=== PATIENT | female | born 1935 | race Caucasian/White ===

== ENCOUNTER 2017-05-20 12:51 | Emergency (ER) | payer MEDICARE, BC, OTHER ==
[~2017-05-20] VITALS: Ht 162.6 cm; Wt 75.1 kg
[2017-05-20] MEDS ORDERED: LOSARTAN POTASS1 TA2 PO (12:59)
[2017-05-20 19:50] VITALS: BP 135/58
== END 2017-05-20 19:50 | disposition other institution (70) ==
LOC: ED 12:51
DX: G45.9 Transient cerebral ischemic attack, unspecified (principal); I10 Essential (primary) hypertension; R53.1 Weakness; W19.XXXA Unspecified fall, initial encounter
CPT/HCPCS: A4353; J7030

== ENCOUNTER 2017-05-24 14:58 | Inpatient (IN) | payer MEDICARE, BC, OTHER ==
[~2017-05-24] VITALS: Ht 162.6 cm; Wt 74.9 kg
[~2017-05-24 14:58] MED LIST: LOSARTAN POTASS1 TA2 PO
[2017-05-24] MEDS ORDERED: XARELTO15 MG PO (15:09)
[2017-05-24 22:00] VITALS: BP 127/62
[2017-05-24 22:20] VITALS: BP 127/62
[2017-05-24] MEDS ORDERED: TOPROL XL 50MG50 MG PO (22:45)
[2017-05-25 06:29] VITALS: BP 139/57
[2017-05-25 06:49] VITALS: BP 139/57
[2017-05-25 19:41] VITALS: BP 125/74
[2017-05-26 06:28] VITALS: BP 130/64
[2017-05-26 18:19] VITALS: BP 119/63
[2017-05-27 06:18] VITALS: BP 114/55
[2017-05-27 18:17] VITALS: BP 127/66
[2017-05-28 06:18] VITALS: BP 118/68
[2017-05-28 18:17] VITALS: BP 124/51
[2017-05-29 06:26] VITALS: BP 129/50
[2017-05-29 17:56] VITALS: BP 154/69
[2017-05-30 06:27] VITALS: BP 107/50
[2017-05-30 18:22] VITALS: BP 149/55
[2017-05-31 06:20] VITALS: BP 119/51
[2017-05-31 18:57] VITALS: BP 128/60
[2017-06-01 06:23] VITALS: BP 117/52
[2017-06-01 17:54] VITALS: BP 139/61
[2017-06-02 06:27] VITALS: BP 116/51
[2017-06-02 18:32] VITALS: BP 136/70
[2017-06-03 06:20] VITALS: BP 136/60
[2017-06-03 18:30] VITALS: BP 126/61
[2017-06-04 06:24] VITALS: BP 113/61
[2017-06-04 18:07] VITALS: BP 122/55
[2017-06-05 06:00] VITALS: BP 127/61
[2017-06-05 18:21] VITALS: BP 137/60
[2017-06-06 06:12] VITALS: BP 147/65
[2017-06-06 17:47] VITALS: BP 138/81
[2017-06-07 06:41] VITALS: BP 130/61
[2017-06-07 18:12] VITALS: BP 122/81
[2017-06-08 06:33] VITALS: BP 136/60
[2017-06-08 18:30] VITALS: BP 113/56
[2017-06-09 06:27] VITALS: BP 131/66
[2017-06-09 17:50] VITALS: BP 141/76
[2017-06-10 06:26] VITALS: BP 143/72
[2017-06-10 17:51] VITALS: BP 152/93
[2017-06-11 06:19] VITALS: BP 152/60
[2017-06-11 18:30] VITALS: BP 138/75
[2017-06-12 06:21] VITALS: BP 127/58
[2017-06-12 18:39] VITALS: BP 144/68
[2017-06-13 06:36] VITALS: BP 138/61
[2017-06-13 18:05] VITALS: BP 159/72
[2017-06-14 06:20] VITALS: BP 141/68
[2017-06-14] MEDS ORDERED: Aquaphor Oint TP (08:22)
[2017-06-14] MEDS ORDERED: COZAAR 50MG50 MG/TAB PO (08:26)
[2017-06-14] MEDS ORDERED: XARELTO15 MG PO (08:26)
[2017-06-14] MEDS ORDERED: COZAAR100 MG PO (09:57)
== END 2017-06-14 11:15 | disposition home or self-care (01) | DRG 57 ==
LOC: MED/SURG 14:58
PROVIDERS: ADMIT Nurse Practitioner Family
DX: I69.320 Aphasia following cerebral infarction (principal); I48.91 Unspecified atrial fibrillation; I10 Essential (primary) hypertension; R06.00 Dyspnea, unspecified; R53.81 Other malaise; I69.319 Unspecified symptoms and signs involving cognitive functions following cerebral infarction; F01.50 Vascular dementia, unspecified severity, without behavioral disturbance, psychotic disturbance, mood disturbance, and anxiety; B35.3 Tinea pedis
CPT/HCPCS: J7030

== ENCOUNTER 2017-06-20 11:00 | Outpatient (RCR) | payer MEDICARE, BC, OTHER ==
[~2017-06-20 11:00] MED LIST changes: +Aquaphor Oint TP; +COZAAR 50MG50 MG/TAB PO; +COZAAR100 MG PO; +TOPROL XL 50MG50 MG PO; +XARELTO15 MG PO
== END 2017-06-20 11:30 | disposition home or self-care (01) ==
LOC: SPEECH 11:00
DX: I69.320 Aphasia following cerebral infarction (principal); F80.1 Expressive language disorder; I69.319 Unspecified symptoms and signs involving cognitive functions following cerebral infarction; F01.50 Vascular dementia, unspecified severity, without behavioral disturbance, psychotic disturbance, mood disturbance, and anxiety

== ENCOUNTER 2018-01-03 00:14 | Emergency (ER) | payer MEDICARE, BC ==
[~2018-01-03] VITALS: Ht 160 cm; Wt 56.4 kg
[2018-01-03] MEDS ORDERED: COREG 3.123.125 MG/T PO (00:57)
[2018-01-03 01:54] LABS: HEMATOCRIT 39.3 % (37.0-47.0); HEMOGLOBIN 12.8 g/dL (12.5-16.0); MEAN CELL VOLUME 93 fl (78-100); MEAN CORPUSCULAR HEMOGLOBIN 30 pg (27-31); MEAN CORPUSCULAR HGB CONC 33 g/dL (33-37); MEAN PLATELET VOLUME 9.7 fl (7.4-10.4); PLATELET COUNT 267 K/mm3 (130-400); RED BLOOD COUNT 4.24 M/mm3 (4.10-5.30); RED CELL DISTRIBUTION WIDTH 12.9 % (11.5-14.5); WHITE BLOOD COUNT 9.3 K/mm3 (4.8-10.8)
[2018-01-03 02:00] LABS: PROTHROMBIN TIME 15.3 SECONDS (9.0-12.0)
[2018-01-03 02:02] LABS: URINE APPEARANCE CLEAR; URINE BILIRUBIN NEGATIVE (NEGATIVE); URINE BLOOD TRACE (NEGATIVE); URINE COLOR YELLOW; URINE GLUCOSE NEGATIVE (NEGATIVE); URINE KETONE NEGATIVE (NEGATIVE); URINE LEUKOCYTE ESTERASE NEGATIVE (NEGATIVE); URINE NITRATE NEGATIVE (NEGATIVE); URINE PROTEIN(semi-quant) NEGATIVE (NEGATIVE); URINE UROBILINOGEN NORMAL (NORMAL); URINE WBC 0-1 /hpf (0-3)
[2018-01-03 02:02] LABS: LYMPHOCYTE 5 % (20-51); MONOCYTE 5 % (3-10); NEUTROPHILS 90 % (42-75)
[2018-01-03 02:03] LABS: ALBUMIN 3.5 g/dL (3.5-5.0); BUN/CREATININE RATIO 26.8 (6.0-26.0); CALCIUM 10.8 mg/dL (8.4-10.2); POTASSIUM 4.1 mmol/L (3.6-5.0); TOTAL BILIRUBIN 0.8 mg/dL (0.2-1.3); TOTAL PROTEIN 7.1 g/dL (6.3-8.2)
[2018-01-03 02:28] VITALS: BP 169/71
== END 2018-01-03 02:28 | disposition short-term general hospital (02) ==
LOC: ED 00:14
PROVIDERS: Nurse Practitioner Primary Care
DX: S72.451A Displaced supracondylar fracture without intracondylar extension of lower end of right femur, initial encounter for closed fracture (principal); W18.39XA Other fall on same level, initial encounter; Y92.003 Bedroom of unspecified non-institutional (private) residence as the place of occurrence of the external cause; Z86.73 Personal history of transient ischemic attack (TIA), and cerebral infarction without residual deficits; I50.9 Heart failure, unspecified
CPT/HCPCS: J3010

== ENCOUNTER 2018-01-12 13:31 | Inpatient (IN) | payer MEDICARE, BC ==
[~2018-01-12] VITALS: Ht 157.5 cm; Wt 70.2 kg
[~2018-01-12 13:31] MED LIST changes: +COREG 3.123.125 MG/T PO
[2018-01-12 13:53] VITALS: BP 140/58
[2018-01-12 14:35] VITALS: BP 140/58
[2018-01-12] MEDS ORDERED: LIPITOR 10M10 MG/TAB PO (17:41)
[2018-01-12] MEDS ORDERED: TYLENOL EXTRA500 M2 PO (17:41)
[2018-01-12] MEDS ORDERED: SENOKOT8.6 MG PO (17:46)
[2018-01-12] MEDS ORDERED: VOLTAREN GEL1% TP (18:03)
[2018-01-12] MEDS ORDERED: LIDODERM1 EACH TP (18:05)
[2018-01-12 18:22] VITALS: BP 125/79
[2018-01-13 06:12] LABS: URINE COLOR YELLOW
[2018-01-13 06:13] LABS: URINE APPEARANCE CLEAR; URINE BILIRUBIN NEGATIVE (NEGATIVE); URINE BLOOD TRACE (NEGATIVE); URINE GLUCOSE NEGATIVE (NEGATIVE); URINE KETONE NEGATIVE (NEGATIVE); URINE LEUKOCYTE ESTERASE NEGATIVE (NEGATIVE); URINE NITRATE NEGATIVE (NEGATIVE); URINE PROTEIN(semi-quant) TRACE mg/dL (NEGATIVE); URINE UROBILINOGEN NORMAL (NORMAL)
[2018-01-13 06:51] VITALS: BP 130/72
[2018-01-13 07:10] LABS: ALBUMIN 2.6 g/dL (3.5-5.0); BUN/CREATININE RATIO 28.4 (6.0-26.0); CALCIUM 9.9 mg/dL (8.4-10.2); POTASSIUM 3.7 mmol/L (3.6-5.0); TOTAL BILIRUBIN 0.5 mg/dL (0.2-1.3); TOTAL PROTEIN 5.6 g/dL (6.3-8.2)
[2018-01-13 09:29] LABS: HEMATOCRIT 27.4 % (37.0-47.0); HEMOGLOBIN 8.7 g/dL (12.5-16.0); MEAN PLATELET VOLUME 9.3 fl (7.4-10.4); RED BLOOD COUNT 2.87 M/mm3 (4.10-5.30); RED CELL DISTRIBUTION WIDTH 14.1 % (11.5-14.5); WHITE BLOOD COUNT 7.2 K/mm3 (4.8-10.8)
[2018-01-13 18:07] VITALS: BP 143/73
[2018-01-14 06:44] VITALS: BP 113/56
[2018-01-14 18:58] VITALS: BP 109/4
[2018-01-15 06:22] VITALS: BP 124/62
[2018-01-15 18:25] VITALS: BP 100/66
[2018-01-16 06:05] VITALS: BP 121/51
[2018-01-16 09:24] LABS: HEMATOCRIT 30.3 % (37.0-47.0); HEMOGLOBIN 9.4 g/dL (12.5-16.0); MEAN PLATELET VOLUME 8.8 fl (7.4-10.4); RED BLOOD COUNT 3.11 M/mm3 (4.10-5.30); RED CELL DISTRIBUTION WIDTH 14.6 % (11.5-14.5); WHITE BLOOD COUNT 8.1 K/mm3 (4.8-10.8)
[2018-01-16 09:34] LABS: BUN/CREATININE RATIO 29.2 (6.0-26.0)
[2018-01-16 18:23] VITALS: BP 109/61
[2018-01-17 06:22] VITALS: BP 119/64
[2018-01-17 18:07] VITALS: BP 115/68
[2018-01-18 06:25] VITALS: BP 134/64
[2018-01-18 18:23] VITALS: BP 130/78
[2018-01-19 06:40] VITALS: BP 130/67
[2018-01-19 07:33] LABS: HEMATOCRIT 29.9 % (37.0-47.0); HEMOGLOBIN 9.2 g/dL (12.5-16.0); MEAN PLATELET VOLUME 8.7 fl (7.4-10.4); RED BLOOD COUNT 3.07 M/mm3 (4.10-5.30); RED CELL DISTRIBUTION WIDTH 14.8 % (11.5-14.5); WHITE BLOOD COUNT 5.2 K/mm3 (4.8-10.8)
[2018-01-19 12:39] LABS: ALBUMIN 2.7 g/dL (3.5-5.0); BUN/CREATININE RATIO 14.5 (6.0-26.0); CALCIUM 10.1 mg/dL (8.4-10.2); POTASSIUM 4.2 mmol/L (3.6-5.0); TOTAL BILIRUBIN 0.5 mg/dL (0.2-1.3)
[2018-01-19 18:41] VITALS: BP 115/67
[2018-01-20 06:13] VITALS: BP 129/62
[2018-01-20 18:19] VITALS: BP 144/70
[2018-01-21 06:49] VITALS: BP 144/83
[2018-01-21 18:42] VITALS: BP 155/71
[2018-01-22 06:05] VITALS: BP 149/84
[2018-01-22 18:22] VITALS: BP 121/62
[2018-01-23 06:30] VITALS: BP 132/69
[2018-01-23 18:10] VITALS: BP 134/74
[2018-01-24 06:41] VITALS: BP 148/79
[2018-01-24 18:46] VITALS: BP 131/63
[2018-01-25 06:37] VITALS: BP 146/84
[2018-01-25 18:29] VITALS: BP 147/70
[2018-01-26 06:18] LABS: HEMATOCRIT 30.6 % (37.0-47.0); HEMOGLOBIN 9.5 g/dL (12.5-16.0); MEAN PLATELET VOLUME 8.7 fl (7.4-10.4); RED BLOOD COUNT 3.2 M/mm3 (4.10-5.30); RED CELL DISTRIBUTION WIDTH 14.9 % (11.5-14.5); WHITE BLOOD COUNT 6.8 K/mm3 (4.8-10.8)
[2018-01-26 06:31] LABS: BUN/CREATININE RATIO 19.5 (6.0-26.0); POTASSIUM 4.1 mmol/L (3.6-5.0)
[2018-01-26 06:35] VITALS: BP 119/59
[2018-01-26 18:00] VITALS: BP 145/87
[2018-01-27 06:23] VITALS: BP 119/61
[2018-01-27 19:00] VITALS: BP 144/81
[2018-01-28 06:38] VITALS: BP 135/62
[2018-01-28 12:24] LABS: URINE APPEARANCE CLOUDY; URINE BILIRUBIN NEGATIVE (NEGATIVE); URINE BLOOD 50 ery/uL (NEGATIVE); URINE COLOR YELLOW; URINE GLUCOSE NEGATIVE (NEGATIVE); URINE KETONE NEGATIVE (NEGATIVE); URINE NITRATE POSITIVE (NEGATIVE); URINE PROTEIN(semi-quant) TRACE mg/dL (NEGATIVE); URINE UROBILINOGEN NORMAL (NORMAL)
[2018-01-28 12:25] LABS: URINE LEUKOCYTE ESTERASE 2+ (NEGATIVE); URINE WBC >50 /hpf (0-3)
[2018-01-28 18:55] VITALS: BP 127/81
[2018-01-29 06:35] VITALS: BP 137/66
[2018-01-29 19:05] VITALS: BP 150/63
[2018-01-30 07:11] VITALS: BP 137/53
[2018-01-30 18:11] VITALS: BP 158/72
[2018-01-31 05:59] LABS: HEMATOCRIT 34.2 % (37.0-47.0); HEMOGLOBIN 10.8 g/dL (12.5-16.0); MEAN PLATELET VOLUME 9.2 fl (7.4-10.4); RED BLOOD COUNT 3.59 M/mm3 (4.10-5.30); RED CELL DISTRIBUTION WIDTH 14.9 % (11.5-14.5); WHITE BLOOD COUNT 5.7 K/mm3 (4.8-10.8)
[2018-01-31 06:15] LABS: BUN/CREATININE RATIO 24.4 (6.0-26.0); CALCIUM 9.9 mg/dL (8.4-10.2); POTASSIUM 4.3 mmol/L (3.6-5.0)
[2018-01-31 06:26] VITALS: BP 150/52
[2018-01-31 18:37] VITALS: BP 132/86
[2018-02-01 06:30] VITALS: BP 154/67
[2018-02-01 18:11] VITALS: BP 167/78
[2018-02-02 06:31] VITALS: BP 148/78
[2018-02-02 18:36] VITALS: BP 138/76
[2018-02-03 06:07] LABS: HEMATOCRIT 36.8 % (37.0-47.0); HEMOGLOBIN 11.5 g/dL (12.5-16.0); MEAN PLATELET VOLUME 9.2 fl (7.4-10.4); RED BLOOD COUNT 3.88 M/mm3 (4.10-5.30); RED CELL DISTRIBUTION WIDTH 14.8 % (11.5-14.5); WHITE BLOOD COUNT 5.9 K/mm3 (4.8-10.8)
[2018-02-03 06:40] VITALS: BP 161/84
[2018-02-03 11:18] LABS: PH-URINE 5.5 (5.0 - 8.0); URINE APPEARANCE CLEAR; URINE BILIRUBIN NEGATIVE (NEGATIVE); URINE BLOOD NEGATIVE (NEGATIVE); URINE COLOR YELLOW; URINE GLUCOSE NEGATIVE (NEGATIVE); URINE KETONE NEGATIVE (NEGATIVE); URINE NITRATE NEGATIVE (NEGATIVE); URINE PROTEIN(semi-quant) NEGATIVE (NEGATIVE); URINE UROBILINOGEN NORMAL (NORMAL)
[2018-02-03 11:19] LABS: URINE LEUKOCYTE ESTERASE NEGATIVE (NEGATIVE); URINE WBC 0-1 /hpf (0-3)
[2018-02-03 18:32] VITALS: BP 153/84
[2018-02-04 06:30] VITALS: BP 120/57
[2018-02-04 18:40] VITALS: BP 154/71
[2018-02-05 06:29] VITALS: BP 146/70
[2018-02-05 18:43] VITALS: BP 125/71
[2018-02-06 06:20] VITALS: BP 115/64
[2018-02-06 20:00] VITALS: BP 143/81
[2018-02-07 06:36] VITALS: BP 137/71
[2018-02-07 18:48] VITALS: BP 151/71
[2018-02-08 06:25] VITALS: BP 117/56
[2018-02-08 18:20] VITALS: BP 139/59
[2018-02-09 07:06] VITALS: BP 130/70
[2018-02-09 17:38] VITALS: BP 158/64
[2018-02-10 06:25] VITALS: BP 124/72
[2018-02-10 08:54] LABS: HEMATOCRIT 39.5 % (37.0-47.0); HEMOGLOBIN 12.1 g/dL (12.5-16.0); MEAN PLATELET VOLUME 9.3 fl (7.4-10.4); RED BLOOD COUNT 4.14 M/mm3 (4.10-5.30); RED CELL DISTRIBUTION WIDTH 14.9 % (11.5-14.5); WHITE BLOOD COUNT 8.1 K/mm3 (4.8-10.8)
[2018-02-10 09:06] LABS: ALBUMIN 3.3 g/dL (3.5-5.0); BUN/CREATININE RATIO 21.9 (6.0-26.0); CALCIUM 10.4 mg/dL (8.4-10.2); TOTAL BILIRUBIN 0.7 mg/dL (0.2-1.3)
[2018-02-10 18:41] VITALS: BP 117/57
[2018-02-11 06:33] VITALS: BP 103/60
[2018-02-11 19:11] VITALS: BP 136/62
[2018-02-12 06:03] VITALS: BP 128/78
[2018-02-12 18:24] VITALS: BP 149/83
[2018-02-13 06:04] VITALS: BP 146/84
[2018-02-13 08:57] VITALS: BP 164/81
[2018-02-13 18:27] VITALS: BP 159/82
[2018-02-14 06:25] VITALS: BP 144/66
[2018-02-14 18:29] VITALS: BP 146/70
[2018-02-15 06:31] VITALS: BP 147/80
[2018-02-15 19:24] VITALS: BP 136/76
[2018-02-16 06:35] VITALS: BP 157/85
[2018-02-16 17:58] VITALS: BP 158/86
[2018-02-17 06:42] VITALS: BP 132/69
[2018-02-17] MEDS ORDERED: TRAMADOL 50 MG TAB PO (07:38)
[2018-02-17] MEDS ORDERED: PEG 335017 GM/Dose PO (07:39)
[2018-02-17] MEDS ORDERED: SENNA-TIME S 501 TAB PO (07:39)
[2018-02-17] MEDS ORDERED: DESENEX2% TP (07:42)
[2018-02-17 09:47] VITALS: BP 132/69
[2018-02-17 11:00] VITALS: BP 119/62
== END 2018-02-17 11:42 | DRG 560 ==
LOC: MED/SURG 13:31
PROVIDERS: ADMIT Family Medicine
DX: S72.401D Unspecified fracture of lower end of right femur, subsequent encounter for closed fracture with routine healing (principal); N39.0 Urinary tract infection, site not specified; B37.49 Other urogenital candidiasis; F05 Delirium due to known physiological condition; W18.30XD Fall on same level, unspecified, subsequent encounter; I48.91 Unspecified atrial fibrillation; Z86.73 Personal history of transient ischemic attack (TIA), and cerebral infarction without residual deficits; Z79.01 Long term (current) use of anticoagulants; I10 Essential (primary) hypertension; F03.90 Unspecified dementia, unspecified severity, without behavioral disturbance, psychotic disturbance, mood disturbance, and anxiety; D50.0 Iron deficiency anemia secondary to blood loss (chronic)
CPT/HCPCS: A4354; A6531

== ENCOUNTER → 2018-03-28 | Outpatient (CLI) | payer MEDICARE, BC ==
[~2018-03-28] MED LIST changes: +DESENEX2% TP; +LIDODERM1 EACH TP; +LIPITOR 10M10 MG/TAB PO; +PEG 335017 GM/Dose PO; +SENNA-TIME S 501 TAB PO; +SENOKOT8.6 MG PO; +TRAMADOL 50 MG TAB PO; +TYLENOL EXTRA500 M2 PO; +VOLTAREN GEL1% TP
[2018-03-28 13:13] LABS: URINE APPEARANCE CLEAR; URINE BILIRUBIN NEGATIVE (NEGATIVE); URINE BLOOD NEGATIVE (NEGATIVE); URINE COLOR YELLOW; URINE GLUCOSE NEGATIVE (NEGATIVE); URINE KETONE NEGATIVE (NEGATIVE); URINE LEUKOCYTE ESTERASE NEGATIVE (NEGATIVE); URINE MUCUS PRESENT (NOT PRESENT); URINE NITRATE NEGATIVE (NEGATIVE); URINE PROTEIN(semi-quant) NEGATIVE (NEGATIVE); URINE UROBILINOGEN NORMAL (NORMAL); URINE WBC 0-1 /hpf (0-3)
== END ==
LOC: LAB 06:00
PROVIDERS: Family Medicine
DX: R41.82 Altered mental status, unspecified (principal)

== ENCOUNTER 2018-08-16 13:29 | Inpatient (IN) | payer MEDICARE, BC ==
[~2018-08-16] VITALS: Ht 162.6 cm; Wt 65.9 kg
--- NOTE | 2018-08-16 17:25 | NUR ---
Patient transferred from [facility] for Swing bed. Arrives by POV with family. Transferred to wheelchair with staff assist x4 and slide board. Patient unable to assist, and has difficulty following commands. Staff x4 assisted patient into bed. Patient is alert and partially oriented. Slow to respond when asked questions. Laughs inappropriately and states "I don't remember" to most questions. Denies pain when asked, but yells out in pain and has facial grimace when turning patient. Dyspnea noted with minimal exertion. Respirations are shallow and 28-32 breaths per min. Lungs are CTA. Incontinent of bowel. Hilary care provided. Patient arrived with indwelling urinary catheter. Garza d/c. New garza catheter inserted and UA obtained. Urine has a strong foul odor, is dark yellow, and cloudy. Groin is red and excoriated. +3 edema and weeping noted to bilateral lower extremities. Patient's socks were completely saturated with unknown fluid on arrival. Patient has multiple unstagable pressure ulcers. Wound measurements are as follows; large unstagable ulcer to sacrum/buttock. Large area of eschar on both sides of the sacrum extending down on to the buttock tissue measures 8.3cm x 6.4cm. Skin surrounding area of eschar is reddened and warm to touch with intermittent bleeding. Total wound to sacrum including eschar and surrounding reddened tissue measures 11.9cm x 9.4cm. Multiple mepilex dressings applied to cover entire wound per orders. Right ankle is reddened and blanchable with small abrasion noted. Wound to left great toe measures 0.5cm x 0.3cm, left open to air. Wound to left medial knee measures 4.6cm x 5cm, weeping, mepilex applied per orders. Three unstagable wounds noted to area of right hip. Unstagable ulcer to area of right greater trochanter measures 5.5cm x 7cm, and is approximately 70% eschar. Mepilex applied per orders. Distally is 2nd unstagable wound measuring 5.4cm x 7cm, approximately 20% eschar. Mepilex applied per orders. 3rd unstagable ulcer to area of right hip measures 1cm x 1.4cm. Mepilex applied per orders. Bilateral elbows are reddened and blanchable. Both elbows have small abrasions. Bruising noted to bilateral forearms. Patient calls out in pain with wound care and repositioning. Patient oriented to room, call light, bed controls, and fall precautions. Patient verbalizes understanding and denies questions. Refuses supper, states that she is not hungry. Denies needs at this time. Fall precautions in place.
[2018-08-16 18:42] VITALS: BP 133/78
[2018-08-16 19:13] LABS: URINE APPEARANCE CLOUDY; URINE BILIRUBIN NEGATIVE (NEGATIVE); URINE BLOOD 250 ery/uL (NEGATIVE); URINE COLOR YELLOW; URINE GLUCOSE NEGATIVE (NEGATIVE); URINE KETONE NEGATIVE (NEGATIVE); URINE LEUKOCYTE ESTERASE 2+ (NEGATIVE); URINE NITRATE NEGATIVE (NEGATIVE); URINE PROTEIN(semi-quant) 2+ mg/dL (NEGATIVE); URINE UROBILINOGEN NORMAL (NORMAL)
[2018-08-16 19:14] LABS: URINE MUCUS PRESENT (NOT PRESENT); URINE WBC 31-50 /hpf (0-3)
[2018-08-16 19:20] VITALS: BP 133/78
--- NOTE | 2018-08-16 19:45 | NUR ---
Bedside shift report received from Velma Rodriguez RN. Pt resting in bed awake. Pt orient to self. Unable to state what town she is in or the facility. Bed alarm set and call light with in reach of pt.
--- NOTE | 2018-08-16 20:45 | NUR ---
Continues to rest in bed on left side. Bed alarm set and call light with in reach of pt. Nystatin cream applied to wenceslao area. No redness noted under breast or under abd apon. Nguyen catheter to dependant drainage. Urine color dark yellow. Pt given sipps of water. No difficulty noted with swallowing. Pt is a/o to self unable to state what facility she if in or town. Denies having any pain. Dressings to coccyx CDI. Pt does moan out with turned or moved. Knee high VIRI hose on.
--- NOTE | 2018-08-16 20:53 | NUR ---
Offered evening snack, pt declined.
--- NOTE | 2018-08-17 00:18 | NUR ---
2345 Pt incontinent of stool. Size small soft light brown. Dressing on coccyx removed. Skin cleaned. New mepilex dressings applied to coccyx. Pt moaned out with repositioning and cleaning of coccyx. Given sipps of water.
[2018-08-17 05:47] VITALS: BP 118/75
[2018-08-17 06:46] LABS: HEMATOCRIT 28.4 % (37.0-47.0); MEAN CELL VOLUME 84 fl (78-100); MEAN CORPUSCULAR HEMOGLOBIN 27 pg (27-31); MEAN CORPUSCULAR HGB CONC 32 g/dL (33-37); MEAN PLATELET VOLUME 11.2 fl (7.4-10.4); PLATELET COUNT 145 K/mm3 (130-400); RED BLOOD COUNT 3.39 M/mm3 (4.10-5.30); WHITE BLOOD COUNT 8.9 K/mm3 (4.8-10.8)
[2018-08-17 06:51] LABS: RED CELL DISTRIBUTION WIDTH 18.7 % (11.5-14.5)
[2018-08-17 07:18] LABS: BAND 1 % (0-10); LYMPHOCYTE 3 % (20-51); MONOCYTE 1 % (3-10); NEUTROPHILS 93 % (42-75)
[2018-08-17 07:19] LABS: OVALOCYTES 1+
[2018-08-17 07:28] LABS: ALBUMIN 2.1 g/dL (3.5-5.0); CALCIUM 9.4 mg/dL (8.4-10.2); POTASSIUM 3.9 mmol/L (3.6-5.0); TOTAL BILIRUBIN 0.9 mg/dL (0.2-1.3); TOTAL PROTEIN 4.8 g/dL (6.3-8.2)
--- NOTE | 2018-08-17 10:00 | NUR ---
Pt lying in bed on R side. Has had multiple loose stools this AM. At this time, dressing to buttocks ulcer is changed. Necrotic ulcerated area to sacrum, sacral split and tissue directly surrounding. Remaining tissue surrounding ulcer is pink and peeling. Pt has to be turned to be cleansed and redressed. Pt moans out in pain. Apply mepilex foam x 4 and ABD to buttocks wounds, apply desenex powder to groin folds. Indwelling garza catheter intact with yellow urine to dependant drainage. BLE cool to touch with 3+ pitting edema. Pt yells out in pain when VIRI hose are applied, they are currently off. Pt does not tolerate SCD's. Contact Dr. Delgado to notify of loose stools, increased pain and intolerance of VIRI hose. Will await add'l orders.
[2018-08-17 18:36] VITALS: BP 93/52
--- NOTE | 2018-08-17 19:30 | NUR ---
Report received from Melanie PERDOMO. Patient awakens with staff in room. A/O x1 self only. Denies pain with no movement. Has pain with movement and with incontinent cares. Incontinent of stool. Old dressings removed and reapplied after cleansing of buttocks. Nguyen patent to DD with timmy urine. Hilary- area reddened. Nystatin applied. Bilateral legs edematous. Wrapped in tamia wraps x 30 min. Repositoned Q 2 hours. Bed alarm on. Call light in reach.
--- NOTE | 2018-08-18 05:12 | NUR ---
Rests quietly between turns. Takes oxgyen off frequently. SAO2 93% on RA. 100% on 2L/NC.
[2018-08-18 06:27] VITALS: BP 121/68
--- NOTE | 2018-08-18 07:08 | NUR ---
Report to Melanie PERDOMO.
--- NOTE | 2018-08-18 08:30 | NUR ---
At bedside with Dr. Delgado. While discussing pt care planning with pt, she states "I will need more time to think about it" when asked how she wanted to proceed with care. Pt denies pain when lying still and reports pain is tolerable with movement when repositioning. Change dressing to L medial knee. Note 6cm abrasion with purulent drainage. Cover with mepilex. Note dressing to buttock wounds to be draining purulent drainage. Dressings changed at this time and measurements taken as follows: R hip total 6cm x 6cm, necrtotic area 6cm x 4cm, R buttock 19cm x 6.5cm, L buttock 13.5cm x 7cm. The wound bed for buttock measurements is completely necrotic. Applied mepilex foam to buttock wounds then repositioned pt to L side with pillows behind pt and between legs, wrapped BLE with tamia wraps and applied heel protectors. Bed low and locked, call light in place.
--- NOTE | 2018-08-18 16:41 | NUR ---
Placed damp to dry guaze 4x4's, medicated with Dakin's .25% solution, to buttock wounds and covered with ABD.
[2018-08-18 18:47] VITALS: BP 103/84
--- NOTE | 2018-08-18 19:20 | NUR ---
Bedside shift report received from Melanie Mcconnell RN. Pt resting in bed, awake and a/o to self. Denies having any needs or concerns at this time. Denies having any pain at this time. Vendor from [employer] to set up [employer] bed.
--- NOTE | 2018-08-18 20:00 | NUR ---
Repositioning pt in bed, pt incontinent of stool. Dressing on Coccyx removed. Pt cleaned and wenceslao care given. Dakin's solution used for wet (damp) to dry dressing change. Pt c/o of pain during dressing change. Denied having pain after dressign change.
--- NOTE | 2018-08-18 22:30 | NUR ---
2229 Bed alarm sounding, pt in bed awake and a/o to self. Attempted several times to rest bed, bed alarm continued to alarm. [employer] Richards call [employer] customer service. Customer service on phone with [employer] PETERSEN and assistances over the phone given. [address] lift and bed reset. Pt repositioned in bed, bed alarm set. Given sipps of water. No difficutly noted with swallowing.
--- NOTE | 2018-08-19 07:00 | NUR ---
Bedside shift report given to Wanda Varela RN
[2018-08-19 07:15] VITALS: BP 112/72
--- NOTE | 2018-08-19 08:03 | NUR ---
REPORT RECEIVED FROM LEANNE JONES. PATIENT RESTING BED WITH LIGHTS OFF BUT SHE IS AWAKE AND SAYS HI TO ME. SHE REPORTS NO PAIN AT THIS TIME AND SAYS THE BED IS COMFORTABLE AND SHE SLEPT WELL. PATIENT DIDN'T HAVE QUESTIONS AT THIS TIME.
--- NOTE | 2018-08-19 10:58 | NUR ---
PATIENT DRESSINGS CHANGED, TOLERATED WELL WITH A FEW CRIES OF PAIN WHILE CLEANING AREA WITH SODIUM HYPOCHLORITE. DAMP TO DRY DRESSING APPLIED TO AREA. PATIENT TOLERATED BEING ROLLED FROM SIDE TO SIDE. 3 WOMEN HAVE ARRIVED AND ARE IN THE ROOM WITH PATIENT AT THIS TIME.
[2018-08-19 18:44] VITALS: BP 88/54
--- NOTE | 2018-08-19 19:33 | NUR ---
Report given to LEANNE Oreilly. Patient resting in bed. patient reports she is doing well and tired. Patient did have a lot of company today and wasn't able to sleep much. Had a good day other fan. Dressing changes done earlier today and cleaned as well as possible.
--- NOTE | 2018-08-19 19:35 | NUR ---
Dr Pacheco into see pt.
[2018-08-19 19:36] VITALS: BP 115/77
--- NOTE | 2018-08-19 20:00 | NUR ---
Pt awake and alert to self. Unable to answer questions to orientation, place or time. Incontinent of stool. Pt had a large pudding consistency brown color stool. Hilary care and coccyx care given. Damp to dry dressing change done. Pt repositioned.
--- NOTE | 2018-08-20 | NUR ---
Pt incontinent of stool. Coccyx and wenceslao care given. Wet to dry dressing done. Pt moans out with moving and dressing changes. Once repositions, dressing changes, wenceslao or coccyx care done. Pt does not moan or cry out. Tissue on coccyx continues to be black. Wound edges red with scant red drainage. Left lower coccyx approx 1/2 cm diameter area noted to have active patel drainage noted at 2000 dressing change. None noted at mid night dressing change.
--- NOTE | 2018-08-20 06:00 | NUR ---
Q hourly checks done, Bed alarm set and call light with in reach of pt. Opens eyes when spoken too. Given scheduled tylenol and levaquin crushed in apple sauce. No difficulty noted with swallowing.
[2018-08-20 06:33] VITALS: BP 117/75
--- NOTE | 2018-08-20 07:30 | NUR ---
Bedside shift report given to Chloé Mota RN
--- NOTE | 2018-08-20 18:03 | NUR ---
Pt swing bed after right knee surgery. Nate intact with scant bleeding seen. Bruising on upper and inner thigh. Pt states that the bruising just started yesterday. Pt rates pain constantly 2/10. Pt request pain meds when pain is 4/10. Tramadol 100mg given x 3 this shift. Pt is able to make needs know to staff pt is able to bear weight and ambulate short distance. Pt concer this am was no BM for 3+ days, order recived for Ducolax suppository, pt reports results. FFamily members in for visits through out the day.
--- NOTE | 2018-08-20 18:13 | NUR ---
Pt here swing bed after fall at home and for coccyx decubitus ulcerations. Pt is forgetful at times. Fluids encouraged, pt takes small sips through out the shift. Wound care preformed as ordered. Dry eschar covers most of wound. Breen draniage is noted in lower part of wound by rectum. Eschar in that area has become soft and is lifting away from the wound bed. Family in to visit in the later evening
[2018-08-20 18:48] VITALS: BP 110/66
--- NOTE | 2018-08-20 19:20 | NUR ---
Bedside shift report received Chloé Mota RN. Pt resting in bed with bed alarm set and call light with in reach of pt. Family at bed side. No c/o's of pain. Pt did state "I feel like I'm from another planet." I asked pt if her head felt fuzzy. Pt stated "no."
--- NOTE | 2018-08-20 22:00 | NUR ---
Q hourly checks done. Bed alarm set and call light with in reach of pt. Has been resting in bed awake and alert to self. Denies having any pain. Damp to dry dressing changed done. Small amount of patel drainage noted on dressing. Small amount of soft formed, brown color BM clean. Hilary care and coccyx care given.
[2018-08-21 06:02] VITALS: BP 128/80
--- NOTE | 2018-08-21 07:00 | NUR ---
Bedside shift report given to Melanie Mcconnell RN
--- NOTE | 2018-08-21 11:00 | NUR ---
Dressing change to wound on coccyx/buttocks. Area noted to have thick green/patel slough with deep indentions and redness around wound edges. Pt has small loose brown stool, wenceslao-care provided. This causes great amounts of pain, IM MS requested and administered. Also changed mepilex to L knee and wound to R upper hip. Also placed tamia wraps to BLE per order.
[2018-08-21 18:25] VITALS: BP 100/52
--- NOTE | 2018-08-21 19:09 | NUR ---
PRN DRESSING CHANGE FOLLOWING INCONTINENT STOOL AT THIS TIME, FAMILY LEAVES ROOM, PRN MORPHINE GIVEN TO ASSIST WITH PAIN THROUGH DRESSING CHANGE, THROUGHOUT EVENT PT IS TEARFUL AND CRYING, WOUNDS 90% SLOUGHING, STILL AREAS OF ESCHAR PRESENT, ALL DRESSINGS CHANGED, PT TURNED ONTO LEFT SIDE, STATES SHE IS "COMFORTABLE" UPON EXITING ROOM, FAMILY STILL PRESENT AT THIS TIME, HAVE BEEN HERE MOST OF DAY
--- NOTE | 2018-08-21 20:30 | NUR ---
Bedside shift report received by Melanie PERDOMO. Family in to visit at shift change now gone. Patient alert and oriented to self and place. Unaware of current Month and Year. Denies pain. Continues to have pain with cares and turns. Oxygen in place at 2L/NC. Assessment completed. Wrappings to bilateral legs removed at this time. Dressings to Coccyx and buttocks CDI, Just changed within the hour by Mid-shift nurse. Bed alarm on. Call light in reach.
--- NOTE | 2018-08-22 00:27 | NUR ---
Awaken for scheduled PO Tylenol. Takes with sips of H20. Denies further wants or needs. Repositioned by staff Q 2 hours and PRN.
[2018-08-22 06:23] VITALS: BP 122/67
[2018-08-22 06:28] LABS: HEMATOCRIT 29.7 % (37.0-47.0); HEMOGLOBIN 9.6 g/dL (12.5-16.0); MEAN CELL VOLUME 83 fl (78-100); MEAN CORPUSCULAR HEMOGLOBIN 27 pg (27-31); MEAN CORPUSCULAR HGB CONC 32 g/dL (33-37); MEAN PLATELET VOLUME 9.8 fl (7.4-10.4); PLATELET COUNT 268 K/mm3 (130-400); RED BLOOD COUNT 3.58 M/mm3 (4.10-5.30); WHITE BLOOD COUNT 11.2 K/mm3 (4.8-10.8)
[2018-08-22 06:49] LABS: RED CELL DISTRIBUTION WIDTH 20.7 % (11.5-14.5)
[2018-08-22 06:50] LABS: LYMPHOCYTE 8 % (20-51); MONOCYTE 3 % (3-10); NEUTROPHILS 87 % (42-75)
[2018-08-22 06:51] LABS: TARGET CELLS 1+
[2018-08-22 07:02] LABS: POTASSIUM 4.3 mmol/L (3.6-5.0)
--- NOTE | 2018-08-22 07:38 | NUR ---
Report to Laney PERDOMO.
--- NOTE | 2018-08-22 11:05 | NUR ---
Upon returning pt to bed, change dressing to buttock. Note that since debridement started per recommendations of wound nurse at [facility], slough has softened and an opening is now witnessed up into the sacral cavity. The opening currently is L 2.0cm x W 1.5cm x D 6cm. A wound culture was taken at this time. No active drainage noted from opening.
--- NOTE | 2018-08-22 17:30 | NUR ---
On 08-21-18, APS SW, Lisseth Simmons, spoke to this nurse and stated that pt's daughter states that she loves her mother and would give her life for her before she would hurt her, Lisseth states she explained to the daughter that these kinds of wounds develop over greater than 2 weeks, but daughter continues to state that it developed in days. Lisseth Simmons is notified that Dr Delgado, would like to see that guardianship is obtained for pt other than her daughter. There is no DPOA paperwork on file, and daughter has stated that [facility] lost their only copy. Pt is able to communicate and currently makes her own decisions, always looking to her daughter and consenting to her daughter's advice. Lisseth Simmons states that for Dr Delgado to obtain guardianship other than family members, pt will need to have competency testing by a psychiatrist. [facility] does not currently have a psychiatrist that can do this. [facility] also currently does not have a psychiatrist that can do this. [facility] recommends that Giovanna Romero w/ Dr Gallego be contacted for assistance. On 08-22-18 This nurse has also discussed Dr Delgado's request w/ business risk consultant, Reema Seth, RN who states that as pt's competency is questionable and she is known to seek the daughter's advice and also known to side w/ the daughter's wishes against the advice of health care providers makes this a sensitive case and further documentation may be needed that could possibly be obtained through the local police department about the home situation. Reema also states that if needed she can contact Giovanna Romero for arrangements for a psychiatric evaluation. Deric Lawrence, window systems administrator is also notified of above and he recommends that a face to face meeting be initiated w/ family acknowledging their love for patient, but also acknowledging that while we appreciate this our first concern must be for our patient whom we want to get the care that is needed and we are here to assist her w/ getting that care. This nurse went to pt's room and met w/ pt and her daughter, Radha, and her granddaughter Zeinab and explained to them that we have obtained a pressurized air mattress for pt to help relieve pressure points to prevent additional wounds and help promote healing for the wounds she has. Also that as the necrotic (black) tissue is loosening, nursing has noted that there is quite a large hole that goes deep into the tissue so a CT of her pelvis has been ordered to be sure that there is no bone involvement and that a surgeon will be consulted to see about surgically removing some of the black tissue so that the wound might have a chance to heal from the inside out. This nurse confirmed w/ pt and family that pt has been out of a facility for over 60 days (since 05-05-18) and therefore her MCR days have rebuilt, so she can use SN days for some of this healing, but it will take a very long time for multiple wounds and wounds of this size to heal and she will always be at risk for redeveloping these wounds. Therefore, Dr Delgado, has stated that pt will need LTC placement after her SN stay is completed. This nurse told them that [facility] would consider accepting pt after she is stabilized and her wound care is more established, but family needs to realize that to heal her she will also need admitted to LTC for possibly a lengthy stay, and they are then requested to assist this nurse in completing a MARY application and are asked to bring in financial statements and ID for copying to send in w/ the MARY application. They are asked to set a date and time and they set , Aug 24, 2018 @ 4 pm and verbalize understanding and are very agreeable to doing this, explaining that they know it's time to apply for MARY and then ask if they will lose pt's home. It is explained that as they have been caregivers, that they will be able to remain in the home, but if they sell it a portion of the sale will be used to pay for pt's LTC and daughter states, "That is only right, but I'm glad we can stay in the home, or else we would have no place to go" to which granddaughter nods in agreement. The daughter explains their transportation problems and this nurse learns that she is unaware of County transportation and she is given the Transportation phone number and instructed on how to obtain it, the days and hours it is available, and that there is only a recommended donation of $1, but not required if it is unaffordable. Pt and family are also instructed that a CARE Assessment / [facility] will be scheduled for patient and the chief juvenile probation officer will want to have family present, it is suggested to daughter that she consider making use of [place] [employer] for this if needed. Pt, daughter and granddaughter are very pleasant and agreeable with all suggestions and verbalize understanding of the need for pt to receive in facility care, and the need to complete MARY application. However, after the conversation is over, daughter tells her mother, "It's just like last time, Mom, you will go to rehab and when you get better we will take you home." This nurse will continue to monitor the situation and assist w/ completion and submission of MARY application in anticipation of needed LTC placement.
[2018-08-22 18:00] VITALS: BP 127/66
--- NOTE | 2018-08-22 23:48 | NUR ---
REPORT RECEIVED FROM LEANNE PRICE. PATIENT LYING IN BED RESTING QUIETLY WITH TV ON. PER REPORT ULCER ON BUTTOCK HAS OPENED UP AND TUNNELING NOTED. WOUND CARE PER ORDERS RECEIVED FROM [facility]. FREQUENT DRESSING CHANGES WHEN SOILED. INDWELLING SAWYER MAINTAINED TO PREVENT URINE INCONTINENCE ON WOUND. PER REPORT PATIENT HAD VISITORS TODAY. IV IN PLACE AND INTACT.
--- NOTE | 2018-08-23 02:34 | NUR ---
PATIENT AWAKE AND STATES HER LEFT SHOULDER HURTS AND HER BUTT HURTS. PATIENT ON HER RIGHT SIDE AND WANTING TO GO TO HER BACK. EXPLAINED TO PATIENT THAT SHE WAS JUST ON HER BACK AND WE HAVE TO STAY TURNED TO TAKE PRESSURE OFF HER BUTT. PATIENT TOOK OFF HER OXYGEN AND I PLACED IT BACK ON. PATIENT APPEARS CONFUSED AND IN SOME PAIN DUE TO GRIMACE AND REPORT. PATIENT UNABLE TO GIVE NUMBER ON PAIN SCALE AND REPORTS SHE JUST WANTS TO ROLL ONTO HER BACK. PATIENT WAS GIVEN TYLENOL AN HOUR PRIOR. REPOSITIONED FOR COMFORT.
--- NOTE | 2018-08-23 04:11 | NUR ---
PATIENT INTERMITTENTLY SLEPT; TEARFUL SOME DURING NIGHT AND GIVEN TYLENOL WHEN AWAKE. PATIENT POSITIONED FOR COMFORT AND CLEANED BUTTOCK/WOUND. NO DRESSING TO AREA; YELLOW THICK/THIN DRAINAGE HONEY MUSTARD LIKE CONSISTENCY AND COLOR NOTED; PATIENT COMPLAINED OF PAIN WHILE CHANGING CHUX AND WIPING CECE AREA. SMEAR OF STOOL NOTED IN GLUTEAL CLEFT BUT NOT IN WOUND BED. PATIENT IS LYING IN BED NOW AWAKE BUT NOT WANTING TV OR ANYTHING AT THIS TIME. PATIENT IS CALM, NO CRYING NOTED.
[2018-08-23 06:27] VITALS: BP 131/77
--- NOTE | 2018-08-23 07:55 | NUR ---
Dr. Delgado at bedside to assess changes to sacral wound appearance. Open area with 8cm tunnel noted to coccyx. Thick pale greenish-yellow slough noted. Wound cleansed and dressing applied per orders. Patient cries in pain during dressing change and while repositioning. PRN pain medication was provided. New fentanyl patch applied to right shoulder. Patient denies needs or questions. Fall precautions in place.
--- NOTE | 2018-08-23 17:37 | NUR ---
Dr. Delgado notified of increased pain. Patient has been observed crying multiple times throughout the day and during the night. Crying noted with dressing changes and while resting in bed on either side. Patient states "it's all over, I hurt all over." when asked about pain. New orders received. Patient updated on plan and education provided.
--- NOTE | 2018-08-23 18:20 | NUR ---
Patient removes nasal cannula. Appears frustrated, states "I don't want this." Oxygen saturation was 100% on oxygen at 2 liters via nasal cannula. Patient left on room air at this time. Family at bedside. Fall precautions in place.
[2018-08-23 18:28] VITALS: BP 116/66
--- NOTE | 2018-08-23 19:00 | NUR ---
BEDSIDE SHIFT REPORT RECIEVED FROM LEANNE PRICE. PATIENT RESTING IN BED, CALL LIGHT WITHIN REACH, UNABLE TO SET BED ALARM.
--- NOTE | 2018-08-23 20:10 | NUR ---
METER REPAIRER HELPER'S TO TURN PATIENT AT THIS TIME. PATIENT WITH SOLIED DRESSING. PACKING CLEAN AND INTACT, ABD DRESSING AND TAPE CHANGED.
--- NOTE | 2018-08-23 21:42 | NUR ---
PATIENT SITTING UP IN CHAIR. SHIFT ASSESSMENT COMPLETED AT THIS TIME. PATIENT ALERT, UNABLE TO ORIENT WITH PATIENT AVOIDING ANSWERING QUESTIONS OR GIVING INCORRECT ANSWERS. LUNGS CTA, DENIES COUGH OR SHORTNESS OF BREATH. +3 PITTING EDEMA NOTED TO BLE. HEEL PROTECTORS REMAIN IN PLACE. 20 G IV TO RIGHT AC CDI. FENTANYL PATCH X2 TO RIGHT SHOULDER. SAWYER CATHETER TO DEPENDENT DRAINAGE, DRAINING YELLOW URINE. PATIENT REMAINS ON Q2H TURN SCHEDULE. WOUNDS TO RIGHT HIP AND LEFT KNEE DRESSED WITH MEPLIEX. NECROTIC TISSUE TO COCCYX CLEANSED WITH DAKIN'S SOLUTION, PACKED WITH MEPILEX AG, COVERED WITH ABD DRESSING, AND HYPAFIX TAPE USED TO SECURE. PATIENT WITHOUT FURTHER NEEDS, WILL CONTINUE TO MONITOR. CALL LIGHT WITHIN REACH AND CHAIR ALARM ON.
[2018-08-24 06:27] VITALS: BP 142/64
--- NOTE | 2018-08-24 13:35 | NUR ---
Received request for Hospice referral / consult. Attending Provider, Simran Yañez APRN discusses Hospice care and pt states she wishes to speak to her daughter regarding this. Attending tells pt that she believes that she can make her own decisions and wants to know what does she want, does she want a feeding tube and surgery or does she just want to be done with all the dressing changes and be comfortable, which is what Hospice can do for her. Pt nods that she understands Hospice and says, "Yes". A family meeting is scheduled for 4 pm w/ daughter to be present. [facility] is called and asked to screen pt for Hospice referral. APS SW, Lisseth Simmons is notified that our provider feels pt is able to give consent and also that LTCF will not currently accept pt w/o MARY approval and that family will be given options of care to discuss further w/ their mother and that a Hospice consult has been requested by provider. VM's are left w/ pt's daughter reminding her of 4 pm family meeting and also informing her that a Hospice Consult has been requested and that a sales representative livestock of [facility] will be trying to get in touch w/ her. Dtr states that all of pt's options of care will be discussed w/ her at family meeting and that she is welcome to bring additional relatives or friends w/ her as she desires. Dr Delgado's nurse Bessie is notified of time of family meeting and if possible to open up Dr Delgado's schedule for this time frame.
--- NOTE | 2018-08-24 17:30 | NUR ---
Pt's daughter, Radha, and pt's granddaughter, Zeinab, met w/ Care team: Dr Delgado, Simran Yañez, MARIA A; Adan Rodriguez; Julia Lion, LEANNE; and Marlene Bello RN. Pt options were presented to pt's family. They were told that there is some improvement in the wound in that it is beginning to debride w/ the treatment we are giving it, but it is also explained to them that before it heals pt will need better nutrition as she is eating and drinking very little. They ask if pt could have IV Nutrition and it is explained to them that as pt has nothing wrong w/ her digestion or her swallowing, she would have to have either a tube down her nose or a tube in her stomach. It is also explained to pt's family that to find a surgeon who would agree to operate on her to further debride the wound or place a peg tube is unlikely, as one that Dr Delgado has consulted with has already refused to do this earlier in her care. It is also explained to them that pt had earlier also stated that it is too much to continue the wound care and that she was tired, and that she had agreed that she wanted to be comfortable when Simran Yañez and her nurse Laney had discussed this with her in this nurses presence. Conference call w/ Hospice is done w/ family and Hospice nurse, Allyn, who states that medical delivery driver is still reviewing pt information and she will get back w/ us. She explains to family that if pt is accepted for hospice the cost per day and that if they do not have the finances they will work w/ them and their SW could help them w/ MARY application.
[2018-08-24 18:00] VITALS: BP 130/79
--- NOTE | 2018-08-24 18:15 | NUR ---
This nurse takes MARY application to pt's family and explains that the last page has a list of all the information on the back that pt will need to have to send w/ completed application. Laney Rodriguez RN comes into room as granddaughter states, "I do not have a good feeling about all of this and we want to think on this some more". Both daughter and granddaughter point out how well pt has eaten, and Laney Rodriguez states that she had already heard how well she ate, and that she had eaten better than usual at lunch also. Pt's daughter states that I would like to know if there is a medication that they can give her to help stimulate her appetite and she always eats better if someone helps feed her." Pt's daughter goes on to state that, "I have asked Mom, if she can tell me about the conversation that she had earlier about Hospice, with all of you and she says she does not remember it, so I just feel like I have been in a whirlwind and my mind is going every which way". I think that we need to think about this for awhile, and asks how long can Mom continue to stay here. She is told that as long as nursing is providing dressing changes she is qualifying. Pat is asked in front of Laney Michael and daughter and granddaughter if she is willing to continue dressing changes, and she sighes and states yes. Laney asks if her pain was not as bad when dressing changes were done today and she agrees that it was not. Pt's dtr and granddaughter are reminded that pt does have a surgery consult on Tuesday and are asked if they could be present to visit w/ surgeon, they state yes, granddaughter states she will take off of work. They state that they would like to wait to make the decision about Hospice until after they speak to the surgeon. Daughter states she will call either Dr Delgado or Simran Yañez APRN tomorrow to discuss this. As this nurse leaves the room, the MARY application is pointed out to them again, and it explained that they need to begin working on this because pt's wounds could very easily reoccur even after they heal, and that Dr Delgado will continue to see the need for pt to be permanently placed in LTC, they both verbalized understanding.
--- NOTE | 2018-08-24 19:30 | NUR ---
REPORT RECEIVED FROM LEANNE PRICE. PATIENT RESTING IN BED WITH FAMILY IN THE ROOM. PATIENT IS AWAKE AND DENIES PAIN OR NEEDS AT THIS TIME. FAMILY DENIES ANY QUESTIONS OR CONCERNS. PER REPORT FAMILY HAD MEETING TODAY TO DISCUSS FUTURE CARES. PER REPORT AND FAMILY PATIENT ATE VERY WELL THIS EVENING MEAL AND SEEMED TO BE MORE ALERT.
--- NOTE | 2018-08-24 20:48 | NUR ---
ROLLED PATIENT OVER TO LEFT SIDE; SMALL AMOUNT OF BM NOTED AND CLEANED, ABD WAS SOILED OVER THE WOUND FROM WOUND DRAINAGE. ABD PAD CHANGED AND WOUND EDGES CLEANED. LEFT PACKING IN PLACE AND APPLIED NEW ABD. PATIENT DENIES PAIN BUT SAYING "OOH" DURING DRESSING CHANGE. NO TEARS +GRIMACE. NEW CHUX APPLIED AND PATIENT PLACED FOR COMFORT.
--- NOTE | 2018-08-25 00:50 | NUR ---
Patient was woke up to turn and to take meds. Tolerated very well and checked ABD dressing and did not need to change at this time. Patient mumbled words, no grimacing noted. Lights turned off and all alarms on with bed in lowest position.
--- NOTE | 2018-08-25 03:47 | NUR ---
Patient asleep in bed; lights are off and bed in lowest position.
--- NOTE | 2018-08-25 06:03 | NUR ---
PATIENT TURNED AND NOTED TO HAVE SMALL BM WITH STOOL IN WOUND AND ON DRESSINGS. TRIMMED THE PACKING THAT WAS SOILED AND CLEANED AREA WELL. PATIENT CRIED OUT IN PAIN WITH CLEANING. CLEAN ABD APPLIED AND SECURED WITH HYPAFIX. PATIENT GIVEN SCHEDULED TYLENOL. PATIENT REPORTS DOING BETTER NOW THAT I AM NOT RUBBING ON THE SORE AREA.
[2018-08-25 06:30] VITALS: BP 117/55
--- NOTE | 2018-08-25 07:00 | NUR ---
REPORT RECEIVED FROM CARMEN PERDOMO.
--- NOTE | 2018-08-25 07:20 | NUR ---
PATIENT AWAKE IN BED. REPORTS FEELING COMFORTABLE AND HAVING NO PAIN AT PRESENT. SOFT SPOKEN. SHE DOES NOT FEEL HUNGRY. NORMAL HEART SOUNDS WITH IRREGULAR RHYTHM. PITTING EDEMA TO BILAT LE. HEEL PROTECTORS IN PLACE. PATIENT IS ORIENTED TO NAME AND LOCATION AT THIS TIME. CALL LIGHT IN REACH.
--- NOTE | 2018-08-25 13:26 | NUR ---
PT PRESENTED WITH MEGACE ORAL SUSPENSION AT THIS TIME, PT EDUCATED ON MEGACE AND IT HELPING TO INCREASE APPETITE, PT HAS NO FURTHER QUESTIONS SO MEGACE ADMINISTRATION BEGINS, 1ML OF MEGACE GIVEN AND PT PUTS HAND UP AND STATES, "THATS IT, IM NOT TAKING THIS," PT EDUCATED THAT HER FAMILY IS WANTING TO TRY THIS MEDICATION IN HOPES OF HER APPETITE INCREASING IN ORDER TO EAT AND AIDE IN HEALING HER WOUNDS, PT STATES AGAIN, "I'VE HAD IT, I SAID NO!", THIS NURSE THEN CONTINUE TO ASK PT IF SHE IS IN ANY PAIN, PT PRESENTS AN "OKAY" SIGN WITH HER FINGERS, PT ASKED AGAIN, "WOULD YOU LIKE ANY PAIN MEDICATION? ARE YOU HAVING PAIN RIGHT NOW?" PT RESPONDS, "I AM NO LONGER ALLOWED TO HAVE PAIN," AND SMILES, THIS NURSE REPONDS SAYING "YOU ARE ABSOLUTELY ALLOWED TO HAVE PAIN, AND PAIN IS EXPECTED, WILL YOU LET ME GET YOU MEDICATION TO HELP WITH YOUR PAIN?" PT RESPONDS, "I SAID IM FINE, I DO NOT NEED ANY MEDICATION RIGHT NOW," AT THIS TIME LEW HOOPER PRESENTS TO ROOM TO DISCUSS MEDICATION WITH PATIENT WELL PAIN STATUS, PT REPEATS AGAIN THAT SHE WILL "NOT TAKE THIS MEDICATION," AND RUFUS RUEDAN AGREES WITH PT THAT AT THIS TIME SHE IS CAPABLE OF MAKING THIS DECISION AND SHE DOES NOT HAVE TO TAKE ANY MEDICATIONS SHE DOES NOT WANT TO, PT TEARFUL MULTIPLE TIMES THROUGH ENCOUNTER STATING "I'VE JUST HAD IT," PT REQUESTING TO HAVE SOME TIME TO HERSELF, PT IS UP IN CHAIR, DENIES PAIN ONCE AGAIN, AND LEFT WITH CALL LIGHT WITHIN REACH
--- NOTE | 2018-08-25 14:45 | NUR ---
Dr Delgado is notified of pt's and her family's comments last evening and that they want some time and are requesting to hear the surgeon's opinion on Tuesday. Dr Delgado comments that family was just notified yesterday, so that waiting for decision after the surgeon's consult would be okay, and would give them time. He is also notified of dtr's request for an appetite stimulant. Later in am he is also notified that pt has told staff that she does not want surgery and she "is not allowed to have pain", and she is refusing Megace, but that in front of family she agrees with whatever they want her to do. Dr Delgado requests that he would like to see the DPOA paperwork which family cannot produce and if not he is going to take patients decision over the daughter and requests that risk management be consulted if this is appropriate. Risk Management, Reema Seth is notified. Attending MARIA A is notified and calls pt's daughter to explain of pt's comments to staff on this date and daughter states that she was shell shocked yesterday, but now has had time to think about this and has discussed w/ family and friends and is now agreeable to Hospice @ [facility] since that is what her mother wants. APS CHIARA Simmons is notified of pt and pt family decision and APS CHIARA is also notified that family has still not completed MARY paperwork, refusing this nurse's offer of assistance again, as late as yesterday. [facility] is notified and they will accept pt for this date. Dr Delgado has requested to be Attending and they will contact him for further orders, they request discharge orders to read, "Admit to Hospice". Simran Yañez APRN is notified as is Dr Delgado and nursing of [facility]'s acceptance.
--- NOTE | 2018-08-25 15:16 | NUR ---
TRANSFER FROM CHAIR BACK TO BED. PATIENT TEARFUL WITH MOVEMENT. QUICK BED BATH PROVIDED. DRESSING CHANGE TO COCCYX COMPLETE. FAMILY NOW AT BEDSIDE.
[2018-08-25 15:25] VITALS: BP 117/55
--- NOTE | 2018-08-25 15:44 | NUR ---
[facility] CONTACTED FOR TRANSFER TO THE [facility] IN [facility].
--- NOTE | 2018-08-25 16:01 | NUR ---
PATIENT LEAVES FACILITY AT THIS TIME PER EMS. BELONGINGS GIVEN TO FAMILY.
--- NOTE | 2018-08-25 16:16 | NUR ---
REPORT PROVIDED TO KAYLA NURSE AT [facility].
== END 2018-08-25 16:01 | disposition hospice, inpatient (51) | DRG 193 ==
LOC: MED/SURG 13:29
PROVIDERS: Family Medicine; ADMIT Physician Assistant
DX: J18.9 Pneumonia, unspecified organism (principal); I21.A1 Myocardial infarction type 2; N39.0 Urinary tract infection, site not specified; I48.91 Unspecified atrial fibrillation; Z51.5 Encounter for palliative care; Z66 Do not resuscitate; L89.222 Pressure ulcer of left hip, stage 2; L89.320 Pressure ulcer of left buttock, unstageable; L89.310 Pressure ulcer of right buttock, unstageable; L89.150 Pressure ulcer of sacral region, unstageable; B35.9 Dermatophytosis, unspecified; R53.81 Other malaise
CPT/HCPCS: J2270; Q9967